=== PATIENT | female | born 1955 | race African-American/Black ===

== ENCOUNTER 2016-12-08 08:13 | Emergency (ER) | payer MEDICAID, MEDICARE ==
[2016-12-08 08:48] VITALS: BP 178/120
--- NOTE | 2016-12-08 09:04 | UC ---
Skin Complaint HPI - HPI Summary HPI Summary: 61 yo female presents with multiple bites that were noted this AM also with right wrist pain right wrist swollen x yrs now painful and more swollen Just moved back here no PMD non compliant with antihypertensive med x mos no cp or sob - History of Current Complaint Chief Complaint: UCRash Time Seen by Provider: 12/08/16 08:56 Stated Complaint: RASH Hx Obtained From: Patient Onset/Duration: Sudden Onset Skin Exposure Onset/Duration: Hours Ago Timing: Constant Onset Severity: Moderate Current Severity: Moderate Pain Intensity: 6 - wrist Pain Scale Used: 0-10 Numeric Location: Diffuse Character: Swelling, Pruritus Aggravating: Nothing Alleviating: Nothing Associated Signs & Symptoms: Positive: Rash - Allergy/Home Medications Allergies/Adverse Reactions: Allergies Allergy/AdvReac Type Severity Reaction Status Date / Time Penicillins Allergy Intermediate Hives Verified 12/08/16 08:36 SQUASH Allergy Hives Uncoded 12/08/16 08:36 Review of Systems Constitutional: Negative Skin: Rash Eyes: Negative ENT: Negative Respiratory: Negative Cardiovascular: Negative Gastrointestinal: Negative Genitourinary: Negative Motor: Negative Neurovascular: Negative Musculoskeletal: Arthralgia, Edema Neurological: Negative Psychological: Negative Is Patient Immunocompromised?: No All Other Systems Reviewed And Are Negative: Yes PMH/Surg Hx/FS Hx/Imm Hx Cardiovascular History: Hypertension - Surgical History Surgical History: Yes Surgery Procedure, Year, and Place: 2 ECTOPIC . HYSTERECTOMY - 1999. Rt KNEE - ARTHROSCOPIC - 2001. GALLBLADDER - 2005. RT BUNIONECTOMY - Social History Alcohol Use: None Substance Use Type: None, Prescribed Smoking Status (MU): Light Every Day Tobacco Smoker Type: Cigarettes Amount Used/How Often: 1/2 ppd Physical Exam Triage Information Reviewed: Yes Appearance: Well-Appearing, No Pain Distress, Well-Nourished Vital Signs: Initial Vital Signs Temp 98.7 F 12/08/16 08:28 Pulse 112 12/08/16 08:28 Resp 18 12/08/16 08:28 BP 182/138 12/08/16 08:28 Pulse Ox 100 12/08/16 08:28 Vital Signs Reviewed: Yes Eyes: Positive: Conjunctiva Clear ENT: Positive: Hearing grossly normal. Negative: Nasal congestion, Nasal drainage, Trismus, Muffled/hoarse voice Neck: Positive: Supple, Nontender Respiratory: Positive: Lungs clear, Normal breath sounds, No respiratory distress Cardiovascular: Positive: RRR, No Murmur Musculoskeletal: Positive: ROM Limited @ - right wrist, Other: - dorsal wrist edema/swelling ? ganglion Neurological: Positive: Alert Psychological Exam: Normal Skin Exam: Other - multiple bed bug bites Diagnostics - Radiology No standard instances Xray Interpretation: No Acute Changes - Advanced osteoarthritis most marked at the radiocarpal joint. Age indeterminate scapholunate ligament tear. Radiology Interpretation Completed By: Radiologist Course/Dx - Diagnoses Provider Diagnoses: 1.HYPERTENSION. 2.Bed bug bites. 3. WRIST DJD. 4. REMOTE SCHAPHOID LUNATE LIGAMENT TEAR (right). 5. ?right ganglion cyst Discharge - Discharge Plan Condition: Stable Disposition: HOME Prescriptions: Ibuprofen TAB* [Motrin TAB*] 600 mg PO Q6H PRN #40 tab PRN Reason: Pain Olmesartan Medoxomil-Amlodipin [Tribenzor] 1 tab PO DAILY #30 tab hydrOXYzine HCL TAB* [Atarax TAB*] 25 mg PO QID PRN #20 tab PRN Reason: Itching Patient Education Materials: Osteoarthritis (ED), Ganglion Cysts (ED), Hypertension (ED), Bed Bugs (ED) Referrals: [facility] [place] [facility] [Outside] - As Soon As Possible (call tomorrow for help finding a primary care provider ) Eren Rene MD [Medical Doctor] - 5 Days Additional Instructions: splint you may have a ganglion cyst you BP needs to be followed to er for new or worsening symptoms
--- NOTE | 2016-12-08 09:41 | RAD ---
Indication: Chronic RIGHT wrist pain with recent worsening. Lump in carpal region. Comparison: No relevant prior exams available on the [facility] PACS for comparison. Technique: AP, lateral, and oblique views RIGHT wrist. 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 Polyarticular osteoarthritis with severe joint space narrowing at the radiocarpal joint specifically the articulation with the scaphoid. Associated subchondral sclerosis. Soft tissue swelling most prominent over the dorsum of the wrist. No fracture visualized. IMPRESSION: Advanced osteoarthritis most marked at the radiocarpal joint. Age indeterminate scapholunate ligament tear.
== END 2016-12-08 09:51 | disposition home or self-care (01) ==
LOC: UCEAST 08:13
DX: S63.8X1A Sprain of other part of right wrist and hand, initial encounter (principal); X58.XXXA Exposure to other specified factors, initial encounter; Y92.9 Unspecified place or not applicable; T14.8 Other injury of unspecified body region; W57.XXXA Bitten or stung by nonvenomous insect and other nonvenomous arthropods, initial encounter; Y93.9 Activity, unspecified; Y92.003 Bedroom of unspecified non-institutional (private) residence as the place of occurrence of the external cause; M19.031 Primary osteoarthritis, right wrist; I10 Essential (primary) hypertension; Z90.710 Acquired absence of both cervix and uterus; Z90.49 Acquired absence of other specified parts of digestive tract; Z88.0 Allergy status to penicillin; F17.210 Nicotine dependence, cigarettes, uncomplicated
CPT/HCPCS: 99213; G0463

== ENCOUNTER 2017-04-22 10:41 | Emergency (ER) | payer MEDICARE ==
--- NOTE | 2017-04-22 12:17 | ED ---
Skin Complaint - HPI Summary HPI Summary: 61 female presents to ED with complaints of rash under both breasts that began today after falling asleep with bra on and sweating. Patient states she fell asleep with a certain bra on and when she does that she sweats and causes her to get this rash. She has had it before. Denies Diabetes history. Patient states she was given triamcinolone cream and oral keflex that made the rash better. Denies rash elsewhere. Admits to it being red and itchy. No obvious discharge. Has been applying baking soda. States rash appeared 2 days ago and was worse upon waking up this morning. No other complaints at this time. PMHx includes hypertension (however she has not taken her medication). Denies new substance use of soaps, lotions, etc. No red streaking. 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 HYSTERECTOMY - 1999. Rt KNEE - ARTHROSCOPIC - 2001. GALLBLADDER - 2005. RT BUNIONECTOMY - Immunization History Date of Tetanus Vaccine: unknown Immunizations Up to Date: Yes Infectious Disease History: No Infectious Disease History: Denies: Traveled Outside the [place] in Last 30 Days - Family History Known Family History: Positive: None - Social History Alcohol Use: None Substance Use Type: Reports: None, Prescribed Smoking Status (MU): Light Every Day Tobacco Smoker Type: Cigarettes Amount Used/How Often: 1/2 ppd Review of Systems Constitutional: Negative Cardiovascular: Negative Respiratory: Negative Positive: Rash - erythema under bilateral breasts All Other Systems Reviewed And Are Negative: Yes Physical Exam Triage Information Reviewed: Yes Vital Signs On Initial Exam: Initial Vitals Temp Pulse Resp BP Pulse Ox 98.0 F 103 20 193/130 99 04/22/17 10:42 04/22/17 10:42 04/22/17 10:42 04/22/17 10:42 04/22/17 10:42 elevated BP noted, patient has HTN does not take medication. improved to 170/ 111 at discharge, patient asymptomatic, did not want treatment Vital Signs Reviewed: Yes Appearance: Positive: Well-Appearing, No Pain Distress, Well-Nourished Skin: Positive: Warm, Skin Color Reflects Adequate Perfusion, Dry, Erythema @ - under bilteral breasts tender to touch, pruritic, moist with some white clumpy discharge resembling yeast, also some dried baking soda noted. non blanchable, extending to wear breasts lie on abdomen, no red streaking or rash elsewhere, warm to touch. Negative: Cold, Cyanosis @ ENT: Positive: Pharyngeal erythema Neck: Positive: Supple, Nontender, No Lymphadenopathy Respiratory/Lung Sounds: Positive: Clear to Auscultation, Breath Sounds Present. Negative: Rales, Rhonchi, Wheezes Cardiovascular: Positive: Normal, RRR, Pulses are Symmetrical in both Upper and Lower Extremities. Negative: Murmur, Rub Abdomen Description: Positive: Nontender, Soft Bowel Sounds: Positive: Present Musculoskeletal: Positive: Normal, Strength/ROM Intact Neurological: Positive: Normal, Sensory/Motor Intact, Alert, Oriented to Person Place, Time Diagnostics - Vital Signs Vital Signs Temp Pulse Resp BP Pulse Ox 04/22/17 10:42 98.0 F 103 20 193/130 99 - Laboratory Lab Statement: Any lab studies that have been ordered have been reviewed, and results considered in the medical decision making process. Course/Dx - Course Course Of Treatment: appears to be suffering from a cellulitis versus candidasis interiginous. will treat with nystatin cream and keep area dry. triamcinalone cream for inflammation and itching as previously prescribed and patient requested. keflex if symptoms do not improve in a few days in case of cellulitis. aware of worsening signs and symptoms to watch out for. follow up with pcp for recheck in 1 week. avoid skin being moist. increase fluid intake. aBP also lowered to 170/111 however still very high, patient is aware of this and does have HTN, supposed to take medication however hasnt, is asymptomatic at this time however patient was strongly encouraged and educated the importance to take her medication, follow up with pcp with 5-7 days and lower BP before complications occur. patient agrees and understands, does not want treatment today. - Differential Diagnoses - Skin Complaint Differential Diagnoses: Cellulitis, Local Allergic Reaction, Tinea, Other - candidiasis intertrigo - Diagnoses Provider Diagnoses: Candidal intertrigo, Cellulitis, Hypertension Discharge - Discharge Plan Condition: Stable Disposition: HOME Prescriptions: Cephalexin CAP* [Keflex CAP*] 500 mg PO TID #21 cap Nystatin OINT* 1 applic TOPICAL BID #1 tube Triamcinolone 0.5% CREAM(NF) [Triamcinolone 0.5% CREAM*] 1 applic TOPICAL BID # 1 tube Patient Education Materials: Cellulitis (ED), Skin Yeast Infection (ED) Referrals: [facility] [Outside] Gertrudis Haney PA [Primary Care Provider] - Additional Instructions: Use prescribed cream under breasts twice daily until symptoms improve. Do not apply creams at the same times, space out use hours apart and once other has dried. Do not take oral antibiotic unless symptoms do not improve or worsen after 3-5 days as we discussed. Be sure to keep the area under breasts very dry. Follow up with PCP and have hypertension controlled again, as previously was at it was very high today. Any new or worsening symptoms please seek medical attention promptly.
[2017-04-22 12:33] VITALS: BP 170/111
== END 2017-04-22 12:28 | disposition home or self-care (01) ==
LOC: ED 10:41
DX: L30.4 Erythema intertrigo (principal); B37.2 Candidiasis of skin and nail; N61.0 Mastitis without abscess; I10 Essential (primary) hypertension; F17.210 Nicotine dependence, cigarettes, uncomplicated; Z88.0 Allergy status to penicillin
CPT/HCPCS: 99282

== ENCOUNTER 2017-07-10 12:27 | Emergency (ER) | payer MEDICARE ==
[2017-07-10 12:37] VITALS: BP 158/107
--- NOTE | 2017-07-10 14:12 | UC ---
Zhen Serrato Angela, scribed for Kenan Raza MD on 07/10/17 at 1242 . Complaint Female HPI - HPI Summary HPI Summary: This pt is a 62 y/o female presenting to [facility] c/o vaginal discharge for the past 3 weeks. Pt describes the discharge as foul smelling. She states she took left over cephalexin she had for the past 4 days without relief. Pt notes she takes 4-5 showers a day and the smell does not go away. Denies any pain, fever, vaginal bleeding, nausea, vomiting. She is sexually active with her and they have unprotected sex. Denies hx of STDs. PMHx includes HTN. Pt is not . - History Of Current Complaint Chief Complaint: UCGeneralIllness Stated Complaint: PERSONAL Time Seen by Provider: 07/10/17 12:34 Hx Obtained From: Patient ?: No Onset/Duration: Lasting Weeks, Still Present Timing: Lasting Weeks Severity Currently: None Pain Intensity: 0 Pain Scale Used: 0-10 Numeric Aggravating Factor(s): Nothing Alleviating Factor(s): Nothing Associated Signs And Symptoms: Positive: Vaginal Discharge. Negative: Fever, Vaginal Bleeding/Discharge - bleeding, Nausea, Vomiting(# Of Episodes =) - Allergies/Home Medications Allergies/Adverse Reactions: Allergies Allergy/AdvReac Type Severity Reaction Status Date / Time Penicillins Allergy Hives Verified 07/10/17 12:38 SQUASH Allergy Hives Uncoded 07/10/17 12:38 Home Medications: Home Medications Nystatin OINT* 1 applic TOPICAL BID PRN 07/10/17 [History Confirmed 07/10/17] Triamcinolone 0.5% CREAM(NF) [Triamcinolone 0.5% CREAM*] 1 applic TOPICAL BID PRN 07/10/17 [History Confirmed 07/10/17] PMH/Surg Hx/FS Hx/Imm Hx Other Endocrine History: DENIES: diabetes Cardiovascular History: Hypertension - Surgical History Surgical History: Yes Surgery Procedure, Year, and Place: 2 ECTOPIC . HYSTERECTOMY - 1999. Rt KNEE - ARTHROSCOPIC - 2001. GALLBLADDER - 2005. RT BUNIONECTOMY - Family History Known Family History: Positive: Cardiac Disease, Hypertension, Diabetes Family History: Breast CA - Social History Alcohol Use: None Substance Use Type: None Smoking Status (MU): Light Every Day Tobacco Smoker Type: Cigarettes Amount Used/How Often: 1/2 ppd Review of Systems Constitutional: Negative Skin: Negative Eyes: Negative ENT: Negative Respiratory: Negative Cardiovascular: Negative Gastrointestinal: Negative Genitourinary: Vaginal/Penile Discharge - vaginal discharge Motor: Negative Neurovascular: Negative Musculoskeletal: Negative Neurological: Negative Psychological: Negative All Other Systems Reviewed And Are Negative: Yes Physical Exam - Summary Physical Exam Summary: VITAL SIGNS: Reviewed. GENERAL: Patient is a well-developed and nourished female who is lying comfortable in the stretcher. Patient is not in any acute respiratory distress. HEAD AND FACE: Normocephalic EYES: PERRLA, EOMI x 2. EARS: Hearing grossly intact. MOUTH: Oropharynx within normal limits. NECK: Supple, trachea is midline, no adenopathy, no JVD, no carotid bruit. CHEST: Symmetric, no tenderness at palpation LUNGS: Clear to auscultation bilaterally. No wheezing or crackles. CVS: Regular rate and rhythm, S1 and S2 present, no murmurs or gallops appreciated. ABDOMEN: Soft, non-tender. Bowel sounds are normal. No abdominal abnormal pulsations. TOBACCO EDUCATOR: Female sand operator is present during the examination. External genitalia: within normal limits. No rashes, lesions or ecchymosis. Speculum exam: pt has vaginal discharge, white in color. I could not find the cervix as the pt has had a total hysterectomy. No adnexal masses. All cultures were collected and send to the lab. EXTREMITIES: Full ROM in all major joints, no edema, no cyanosis or clubbing. NEURO: Alert and oriented x 3. No acute neurological deficits. Speech is normal and follows commands. SKIN: Dry and warm Triage Information Reviewed: Yes Vital Signs: Initial Vital Signs Temp 97.8 F 07/10/17 12:33 Pulse 101 07/10/17 12:33 Resp 16 07/10/17 12:33 BP 158/107 07/10/17 12:33 Pulse Ox 99 07/10/17 12:33 Vital Signs Reviewed: Yes Complaint Female Dx - Course Course Of Treatment: This pt is a 62 y/o female presenting to [facility] c/o vaginal discharge for the past 3 weeks. Pt describes the discharge as foul smelling. She states she took left over cephalexin she had for the past 4 days without relief. Pt notes she takes 4-5 showers a day and the smell does not go away. Denies any pain, fever, vaginal bleeding, nausea, vomiting. She is sexually active with her and they have unprotected sex. Denies hx of STDs. PMHx includes HTN. On pelvic exam pt has white vaginal discharge, no adnexal masses. External genitalia is normal. All cultures were collected and sent to the lab. Therefore pt will be discharged home with follow up from her PCP. Pt will be given prescriptions for Flagyl and Monistat. I discussed all the findings and test results with the patient. Pt was instructed to return to the urgent care or go to ER immediately if any of the symptoms return or worsens. Plan of care was discussed with the patient and pt understands and agrees. All questions were answered to patient satisfaction. There were no further complaints or concerns. Pt is hemodynamically stable, alert and oriented x3. The patient was found to have increased blood pressure in UC. The patient will follow up with PCP for better control of BP. - Differential Dx/Diagnosis Provider Diagnoses: Vaginal candidiasis. Bacterial vaginosis Discharge - Sign-Out/Discharge Documenting (check all that apply): Discharge - discharge to home - Discharge Plan Condition: Stable Disposition: HOME Prescriptions: metroNIDAZOLE [Flagyl] 500 mg PO BID #14 tablet Miconazole VAG.SUPP* [Monistat7*] 100 mg VAGINAL BEDTIME #7 vag.supp Patient Education Materials: Bacterial Vaginosis (ED), Yeast Infection (ED) Referrals: Anya De La Cruz MD [Primary Care Provider] - Additional Instructions: FOLLOW UP WITH YOUR PRIMARY CARE PROVIDER WITHIN ONE WEEK FOR HIGH BLOOD PRESSURE NOTED TODAY. RETURN TO URGENT CARE OR THE ED FOR ANY WORSENING OR NEW SYMPTOMS. The documentation as recorded by the Zhen lawson Angela accurately reflects the service I personally performed and the decisions made by me, Kenan Raza MD.
== END 2017-07-10 13:05 | disposition home or self-care (01) ==
LOC: UCEAST 12:27
DX: B37.3 Candidiasis of vulva and vagina (principal); N76.0 Acute vaginitis; B96.89 Other specified bacterial agents as the cause of diseases classified elsewhere; Z88.0 Allergy status to penicillin; I10 Essential (primary) hypertension; F17.210 Nicotine dependence, cigarettes, uncomplicated
CPT/HCPCS: 87480; 87491; 87510; 87591; 87661; 99212; G0463

== ENCOUNTER 2017-11-22 15:14 | Emergency (ER) | payer MEDICARE ==
[2017-11-22 15:50] VITALS: BP 137/108
--- NOTE | 2017-11-22 16:44 | UC ---
Skin Complaint HPI - HPI Summary HPI Summary: 62 y/o female presents to the urgent care c/o c/o itchy rash under her breasts from sweating for 2 days, and wants Keflex and Triamcinolone. Repeat BP 130/101 - History of Current Complaint Chief Complaint: UCRash Time Seen by Provider: 11/22/17 16:41 Stated Complaint: RASH Hx Obtained From: Patient Pain Intensity: 0 - Allergy/Home Medications Allergies/Adverse Reactions: Allergies Allergy/AdvReac Type Severity Reaction Status Date / Time Penicillins Allergy Hives Verified 11/22/17 15:50 SQUASH Allergy Hives Uncoded 11/22/17 15:50 PMH/Surg Hx/FS Hx/Imm Hx - Surgical History Surgical History: Yes Surgery Procedure, Year, and Place: 2 ECTOPIC . HYSTERECTOMY - 1999. Rt KNEE - ARTHROSCOPIC - 2001. GALLBLADDER - 2005. RT BUNIONECTOMY - Family History Known Family History: Positive: None, Cardiac Disease, Hypertension, Diabetes Family History: Breast CA - Social History Alcohol Use: None Substance Use Type: None Smoking Status (MU): Light Every Day Tobacco Smoker Type: Cigarettes Amount Used/How Often: 1/2 ppd Physical Exam Vital Signs: Initial Vital Signs Temp 97.4 F 11/22/17 15:47 Pulse 128 11/22/17 15:47 Resp 18 11/22/17 15:47 BP 137/108 11/22/17 15:47 Pulse Ox 98 11/22/17 15:47 Discharge - Discharge Plan Referrals: No Primary Care Phys,NOPCP [Primary Care Provider] -
--- NOTE | 2017-11-23 09:57 | UC ---
Discharge - Sign-Out/Discharge Documenting (check all that apply): Post-Discharge Follow Up All imaging exams completed and their final reports reviewed: No Studies - Discharge Plan Condition: Stable Disposition: HOME Prescriptions: Cephalexin CAP* [Keflex CAP*] 500 mg PO QID #28 cap Triamcinolone 0.1% OINT(NF) [Kenalog 0.1% OINT(NF)] 1 applic .SEE ORDER BID #1 applic Patient Education Materials: Cellulitis (ED) Referrals: [facility] [place] [facility] [Outside] - 3 Days Additional Instructions: 1-Please take full course of Antibiotic. Apply Triamcinolone topical cream as directed on affected areas. Keep areas dry and clean 2- If redness and swelling doubles in size beyond what was demarcated after 48 hrs of taking antibiotic and fever develops please go to the ER immediately. 3-Please take Bendaryl PO q6hrs prn to alleviate itchiness. 4-Please F/u with your PCP in 3 days for further evaluation and treatment. 5-Your BP is elevated today. please decrease salt in your diet, monitor BP and if it continues to be elevated please f/u with your PCP for further management - Billing Disposition and Condition Condition: STABLE Disposition: Home
== END 2017-11-22 17:00 | disposition home or self-care (01) ==
LOC: UCEAST 15:14
DX: R21 Rash and other nonspecific skin eruption (principal); F17.210 Nicotine dependence, cigarettes, uncomplicated; Z88.0 Allergy status to penicillin; Z91.018 Allergy to other foods
CPT/HCPCS: 99212; G0463

== ENCOUNTER 2018-06-07 13:04 | Emergency (ER) | payer MEDICARE ==
--- NOTE | 2018-06-07 14:10 | UC ---
Respiratory Complaint HPI - HPI Summary HPI Summary: 3 days of body aches chest congestion cough chills sob - History of Current Complaint Chief Complaint: UCRespiratory Stated Complaint: CHEST CONGESTION Time Seen by Provider: 06/07/18 14:01 Hx Obtained From: Patient ?: No Onset/Duration: Sudden Onset, Lasting Days - 3, Still Present Timing: Constant Pain Intensity: 10 Pain Scale Used: 0-10 Numeric Character: Cough: Nonproductive Alleviating Factors: Nothing Associated Signs And Symptoms: Positive: Fever, Chills, URI, Nasal Congestion - Allergies/Home Medications Allergies/Adverse Reactions: Allergies Allergy/AdvReac Type Severity Reaction Status Date / Time Penicillins Allergy Hives Verified 06/07/18 13:24 SQUASH Allergy Hives Uncoded 06/07/18 13:24 Home Medications: Home Medications metFORMIN* [Glucophage 850 MG TAB *] 1 tab PO DAILY 06/07/18 [History Confirmed 06/07/18] PMH/Surg Hx/FS Hx/Imm Hx Previously Healthy: No Endocrine History: Diabetes - Surgical History Surgical History: Yes Surgery Procedure, Year, and Place: 2 ECTOPIC . HYSTERECTOMY - 1999. Rt KNEE - ARTHROSCOPIC - 2001. GALLBLADDER - 2005. RT BUNIONECTOMY - Family History Known Family History: Positive: None, Cardiac Disease, Hypertension, Diabetes Family History: Breast CA - Social History Occupation: Retired Lives: With Family Alcohol Use: None Substance Use Type: None Smoking Status (MU): Light Every Day Tobacco Smoker Type: Cigarettes Amount Used/How Often: 1/2 ppd Cessation Counseling: Counseled 3+Min - 10 Min Review of Systems All Other Systems Reviewed And Are Negative: Yes Constitutional: Positive: Chills, Fatigue Skin: Positive: Negative Eyes: Positive: Negative ENT: Positive: Nasal Discharge, Sinus Congestion Respiratory: Positive: Cough Cardiovascular: Positive: Negative Gastrointestinal: Positive: Negative Genitourinary: Positive: Negative Motor: Positive: Negative Neurovascular: Positive: Negative Musculoskeletal: Positive: Arthralgia, Myalgia Neurological: Positive: Headache Psychological: Positive: Negative Is Patient Immunocompromised?: Yes Physical Exam Triage Information Reviewed: Yes Appearance: Well-Nourished, Ill-Appearing, Pain Distress - mild/mod Vital Signs: Initial Vital Signs Temp 99.1 F 06/07/18 13:21 Pulse 120 06/07/18 13:21 Resp 24 06/07/18 13:21 BP 00/00 06/07/18 13:21 Pulse Ox 99 06/07/18 13:21 Vital Signs Reviewed: Yes Eye Exam: Normal Eyes: Positive: Conjunctiva Clear ENT Exam: Normal ENT: Positive: Normal ENT inspection, Hearing grossly normal, Pharynx normal, Nasal congestion, TMs normal, Uvula midline. Negative: Trismus, Muffled voice, Hoarse voice, Dental tenderness, Sinus tenderness Dental Exam: Normal Neck exam: Normal Neck: Positive: Supple, Nontender Respiratory Exam: Normal Respiratory: Positive: Chest non-tender, Lungs clear, Normal breath sounds, No respiratory distress, No accessory muscle use Cardiovascular Exam: Other Cardiovascular: Positive: RRR, No Murmur, Pulses Normal, Brisk Capillary Refill , Tachycardia Musculoskeletal Exam: Normal Musculoskeletal: Positive: Strength Intact, ROM Intact, No Edema Neurological Exam: Normal Neurological: Positive: Alert, Muscle Tone Normal Psychological Exam: Normal Skin Exam: Normal Diagnostics - EKG Cardiac Rate: Tachycardia Cardiac Rhythm: Sinus: Normal Ectopy: None ST Segment: Non-Specific - depression v2,3,4 large r waves anterior leads EKG Comparison: Other - none available Respiratory Course/Dx - Course Course Of Treatment: ed by EMS---patient wishing not to chew regular aspirin will be given in ambulance, s/l to ed by ems - Differential Dx/Diagnosis Provider Diagnosis: Sinus tachycardia, Demand ischemia of myocardium, Nicotine dependence - Physician Notification/Consults Time Discussed With Above Provider: 14:30 - kellee BOWER Discharge - Sign-Out/Discharge Documenting (check all that apply): Patient Departure All imaging exams completed and their final reports reviewed: No Studies - Discharge Plan Condition: Fair Disposition: TRANS HIGHER LVL OF CARE FAC Referrals: No Primary Care Phys,NOPCP [Primary Care Provider] - - Billing Disposition and Condition Condition: FAIR Disposition: Trans Higher Lvl of Care Fac - Attestation Statements Provider Attestation: Patient was initially seen by the [facility]. The patient was presented to me .I reviewed the ekg, EKG: Sinus tachycardia , T wave inversion in V1, ST depression in V3 to V5. Tall R wave in anterior leads. No ST elevation . Concern for cardiac ischemia, recommended transfer to ER via ambulance for further evaluation . She expressed understanding . Patient transferred to ER. Vitals stable at the time of discharge. -Dk Corrales MD
[2018-06-07] MEDS ORDERED: Aspirin 81 mg CHEW TAB* 81 MG TAB.CHEW PO ONE (14:24)
[2018-06-07 14:35] LABS: Influenza A Molecular NEGATIVE (Negative); Influenza B Molecular NEGATIVE (Negative)
[2018-06-07 14:42] VITALS: BP 132/98
== END 2018-06-07 14:47 | disposition short-term general hospital (02) ==
LOC: UCEAST 13:04
DX: R00.0 Tachycardia, unspecified (principal); I24.8 Other forms of acute ischemic heart disease; F17.210 Nicotine dependence, cigarettes, uncomplicated; E11.9 Type 2 diabetes mellitus without complications; Z88.0 Allergy status to penicillin; Z91.09 Other allergy status, other than to drugs and biological substances
CPT/HCPCS: 93005; 99213; G0463

== ENCOUNTER 2018-06-07 14:58 | Emergency (ER) | payer MEDICARE ==
[2018-06-07] MEDS ORDERED: NS 0.9% 1000 ML** 1,000 ML IV ONE (15:04)
[2018-06-07] MEDS ORDERED: Albuterol/Ipratropium NEB.SOL* Albuterol 2.5 MG/Ipratropium 0.5 MG 3 ML INH ONE (15:06)
--- NOTE | 2018-06-07 15:35 | ED ---
Respiratory - HPI Summary HPI Summary: Patient is a 63 y/o female brought in by EMS who presents to the ED c/o cough. She was sent here from because an EKG at the revealed tachycardia and minor ST depressions in the lateral leads. At the patient was given a breathing treatment. For the past 3 days, patient has c/o body aches, chills, chest congestion, cough, and SOB. She also c/o chest soreness due to her cough. Patient reports thick spit when she coughs. She is a smoker but states she is down to 7 cigarettes a day. Patient was recently diagnosed with DM and doesnt know what her BG is. PMHx HTN, and she denies any hx of CHF. - History of Current Complaint Stated Complaint: CHEST PAIN PER EMS Hx Obtained From: Patient, EMS Onset/Duration: Gradual Onset, Lasting Days - 3, Still Present Timing: Constant Character: Cough (Productive), Dyspnea at Rest Sputum Color: White - "thick spit" Aggravating Factor(s): Nothing Alleviating Factor(s): Other - breathing tx Associated Signs and Symptoms: SOB, Chills - Allergy/Home Medications Allergies/Adverse Reactions: Allergies Allergy/AdvReac Type Severity Reaction Status Date / Time Penicillins Allergy Hives Verified 06/07/18 13:24 SQUASH Allergy Hives Uncoded 06/07/18 13:24 PMH/Surg Hx/FS Hx/Imm Hx Endocrine/Hematology History: Reports: Hx Diabetes Cardiovascular History: Reports: Hx Hypertension Denies: Hx Congestive Heart Failure, Hx Pacemaker/ICD GI History: Reports: Hx Gall Bladder Disease - cholecystectomy Sensory History: Denies: Hx Hearing Aid Psychiatric History: Denies: Hx Panic Disorder - Surgical History Surgery Procedure, Year, and Place: 2 ECTOPIC . HYSTERECTOMY - 1999. Rt KNEE - ARTHROSCOPIC - 2001. GALLBLADDER - 2005. RT BUNIONECTOMY - Immunization History Date of Tetanus Vaccine: unknown Infectious Disease History: Denies: Traveled Outside the [place] in Last 30 Days - Family History Known Family History: Positive: Cardiac Disease, Hypertension, Diabetes Family History: Breast CA - Social History Alcohol Use: None Hx Substance Use: No Substance Use Type: Reports: None Hx Tobacco Use: Yes Smoking Status (MU): Light Every Day Tobacco Smoker Type: Cigarettes Amount Used/How Often: 1/2 ppd Review of Systems Positive: Chills, Other - body aches Positive: Shortness Of Breath, Cough, Other - chest congestion Positive: Myalgia - chest soreness due to coughing All Other Systems Reviewed And Are Negative: Yes Physical Exam - Summary Physical Exam Summary: Appearance: Well appearing, no pain distress Skin: warm, dry, reflects adequate perfusion Head/face: normal Eyes: EOMI, REBECCA ENT: mucous membranes moist Neck: supple, non-tender Respiratory: CTA, breath sounds present Cardiovascular: tachycardic but regular rhythm, pulses symmetrical, no LE edema Abdomen: non-tender, soft Bowel Sounds: present Musculoskeletal: normal, strength/ROM intact Neuro: normal, sensory motor intact, A&Ox3 Triage Information Reviewed: Yes Vital Signs Reviewed: Yes Diagnostics - Laboratory Result Diagrams: 06/07/18 15:40 06/07/18 15:40 Lab Statement: Any lab studies that have been ordered have been reviewed, and results considered in the medical decision making process. - Radiology CXR Radiology Interpretation Completed By: Radiologist Summary of Radiographic Findings: NO ACTIVE CARDIOPULMONARY DISEASE. ED physician reviewed radiology report. Re-Evaluation - Re-Evaluation First Eval Re-Evaluation Time: 16:40 Change: Improved Comment: Pt feels better and would like to be discharged. Disposition - Course Course Of Treatment: Nurse's notes reviewed. The patient presents with cough and congestion with some soreness with coughing from the urgent care. She had great related minor ST changes in the lateral leads. Her troponin here is negative. X-ray is negative for infiltrate. She is feeling much better with IV fluids, breathing treatments. She was given albuterol inhaler to discharge home with. There is no indication for antibiotic. She'll follow closely with her primary care physician. - Differential Dx - Cardiopulmonary Differential Diagnoses - Cardiopulmonary: Asthma, Bronchitis, Exacerbation Of COPD, Influenza, Lower Resp Infection, Pulmonary Edema, Pulmonary Embolism - Diagnoses Provider Diagnoses: Acute bronchitis, Atypical chest pain Discharge - Sign-Out/Discharge Documenting (check all that apply): Patient Departure - Discharge Patient Received Moderate/Deep Sedation with Procedure: No - Discharge Plan Condition: Improved Disposition: HOME Prescriptions: Benzonatate CAP* [Tessalon 100 MG CAP*] 100 mg PO TID PRN #20 cap PRN Reason: Cough Dexamethasone TAB* [Decadron TAB*] 8 mg PO DAILY #6 tab guaiFENesin [Mucinex] 600 mg PO BID #20 tab.er.12h Patient Education Materials: Acute Bronchitis (ED) Referrals: [facility] [Outside] [facility] [Outside] Additional Instructions: Drink plenty of fluids. Stay really well-hydrated. Ensure that you getting enough fluids that you urinate clear. Use a humidifier while you sleep. Call your doctor first thing in the morning to schedule prompt follow-up. Return with difficulty breathing, worsening, new symptoms or other concerns. Use the provided inhaler every 4hrs until well. - Billing Disposition and Condition Condition: IMPROVED Disposition: Home - Attestation Statements Document Initiated by Ewa: Yes Documenting Scribe: Dayna Feliz Provider For Whom Ewa is Documenting (Include Credential): Moshe Nolasco MD Scribe Attestation: Dayna Serrato scribed for Moshe Nolasco MD on 06/07/18 at 1828. Scribe Documentation Reviewed: Yes Provider Attestation: The documentation as recorded by the Dayna lawson accurately reflects the service I personally performed and the decisions made by Moshe boland MD Status of Scribe Document: Viewed
[2018-06-07 15:54] LABS: ABS Basophils 0.1 10^3/ul (0-0.2); ABS Eosinophils 0.2 10^3/ul (0-0.6); ABS Lymphocytes 1.9 10^3/ul (1.0-4.8); ABS Monocytes 0.4 10^3/ul (0-0.8); ABS Neutrophils 5.8 10^3/ul (1.5-7.7); ABS Nucleated RBC 0 10^3/ul; Eosinophil % 2.3 %; Hematocrit 43 % (33-41); Hemoglobin 14.6 g/dL (12.0-16.0); Lymphocyte % 22.4 %; Mean Corpuscular HGB Conc 34 g/dL (31-36); Mean Corpuscular Hemoglobin 29 pg (27-31); Mean Corpuscular Volume 85 fL (80-97); Mean Platelet Volume 7.5 fL (7.4-10.4); Nucleated Red Blood Cells % 0.1; Platelet Count 320 10^3/uL (150-450); Red Blood Count 5.11 10^6 /uL (3.70-4.87); Red Cell Distribution Width 15 % (10.5-15); White Blood Count 8.3 10^3/uL (3.5-10.8)
[2018-06-07 16:10] LABS: Albumin 4.3 g/dL (3.2-5.2); Albumin/Globulin Ratio 1.2 (1-3); C Reactive Protein 32.21 mg/L (<8.01); Calcium 9.3 mg/dL (8.6-10.3); EGFR African American 51.4 (>60); EGFR Non-African American 42.5 (>60); Globulin 3.7 g/dL (2-4); Potassium 3.3 mmol/L (3.5-5.0); Total Bilirubin 0.5 mg/dL (0.2-1.0)
[2018-06-07 16:11] LABS: Troponin I 0.01 ng/mL (<0.04)
[2018-06-07] MEDS ORDERED: Albuterol HFA INHALER* 8 gm MDI INH ONE (16:42)
[2018-06-07] MEDS ORDERED: Dexamethasone TAB* 4 MG PO ONE (16:43)
[2018-06-07] MEDS ORDERED: Codeine TAB* 15 MG PO ONE (16:43)
[2018-06-07 17:21] VITALS: BP 120/87
[2018-06-07] MEDS ORDERED: Codeine TAB* 30 MG PO ONE (18:00)
--- NOTE | 2018-06-09 08:14 | PN ---
Progress Note - Progress Note Date of Service: 06/07/18 Note: Pt. seen in ED 05/10 for cough and SOB. Blood culture today in one anaerobic bottle is growing gram + cocci resembling staph. Normal WBC. Pt. did have fever in ED. Dx with bronchitis. Not on antibiotics. I attempted to call pt. today at 0812 to see how she was feeling. No answer and voicemail left to return call. Pt.'s next of kin listed and person to notify in chart have the same phone number listed as pt. Will attempt to call later today. 1620: Attempted to call pt. again with no answer, message left. Will attempt to call again tomorrow. No PCP listed in chart.
== END 2018-06-07 17:16 | disposition home or self-care (01) ==
LOC: ED 14:58
DX: R07.89 Other chest pain (principal); R06.02 Shortness of breath; Z88.0 Allergy status to penicillin; R05 Cough; F17.210 Nicotine dependence, cigarettes, uncomplicated; R09.89 Other specified symptoms and signs involving the circulatory and respiratory systems; J20.9 Acute bronchitis, unspecified
CPT/HCPCS: 36415; 71046; 80053; 83605; 83880; 84484; 85025; 86140; 87040; 87077; 87150; 87205; 96360; 99282; A9270-GY; J8540